=== PATIENT | male | born 1990 ===

== ENCOUNTER 2017-09-06 02:16 | Emergency (ER) | payer BC ==
[2017-09-06 02:32] VITALS: BP 145/84; PULSE 117; RESP 19; TEMP 98.2; O2SAT 99
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
--- NOTE | 2017-09-06 09:21 | RAD ---
PROCEDURE: Radiographs of the right elbow. HISTORY: right elbow pain COMPARISON: No prior. FINDINGS: BONES: No acute fracture. JOINTS: Unremarkable. SOFT TISSUES: Normal. JOINT EFFUSION: None. OTHER FINDINGS: None. IMPRESSION: No demonstrated fracture or dislocation.
== END 2017-09-06 04:51 | disposition home or self-care (01) ==
LOC: H.ER 02:16
DX: S09.90XA Unspecified injury of head, initial encounter (principal); S50.311A Abrasion of right elbow, initial encounter; Y04.0XXA Assault by unarmed brawl or fight, initial encounter; Y99.0 Civilian activity done for income or pay

== ENCOUNTER 2018-03-06 11:53 | Emergency (ER) | payer BC ==
[2018-03-06 11:59] VITALS: BMI 28.8
[2018-03-06 12:18] VITALS: RESP 18; TEMP 98
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
[2018-03-06 14:26] VITALS: BP 123/81; PULSE 70
[2018-03-07 21:10] VITALS: O2SAT 98
== END 2018-03-06 15:40 | disposition home or self-care (01) ==
LOC: H.ER 11:53
DX: S40.012A Contusion of left shoulder, initial encounter (principal); W20.8XXA Other cause of strike by thrown, projected or falling object, initial encounter; Y99.0 Civilian activity done for income or pay; F17.200 Nicotine dependence, unspecified, uncomplicated
CPT/HCPCS: 73030; 96372; 99283; J1885